=== PATIENT | female | born 1980 | race Caucasian/White ===

== ENCOUNTER 2024-01-04 08:14 | Emergency (ER) | payer SELFPAY ==
[2024-01-04 08:22] VITALS: BP 157/95
--- NOTE | 2024-01-04 08:42 | ED.GENMED ---
History of Present Illness
General
Chief Complaint: Musculo-Skeletal Complaint
Time Seen by Provider: 01/04/24 08:41
History of Present Illness
History of Present Illness:
HPI: Patient presents with burning sensation into the right lower extremity ongoing for the last few days. Today the pain worsened, the pain is primarily in the right side of the back that radiates into the proximal right thigh/groin. She reports
no dysfunction to the lower extremities. The pain was rather severe earlier. Certain movements make the symptoms worse. She had received chiropractic manipulation in the past.
EXAM:
GENERAL: Well appearing in no distress
HEENT: Moist oral mucosa
ABDOMEN: Soft with no peritoneal signs, no tenderness, there is no right lower quadrant tenderness
NEUROLOGIC: Excellent strength all extremities, no coordination deficits, she has excellent strength in an L5 and S1 distribution
BACK: There is no significant tenderness to palpation to the midline or paraspinal musculature in the lumbar region
PSYCHIATRIC: Appropriate mental status, normal insight and judgement
EXTREMITIES: Nontender, no edema, moves all extremities equally
SKIN: No rash, no lesions
TIME OF INITIAL ENCOUNTER: 9 AM
NUMBER AND COMPLEXITY OF PROBLEMS ADDRESSED AT THE ENCOUNTER
� Chronic conditions affecting care: Denies any significant past medical history
� Acute Exacerbation and/or Progression of Chronic Illness: This is an acute problem
� Differential Diagnosis includes: Sciatica, doubt ureteral stone based on location of pain, doubt appendicitis given the lack of abdominal tenderness, no rash to suggest shingles
AMOUNT AND/OR COMPLEXITY OF DATA TO BE REVIEWED AND ANALYZED
� I performed an independent evaluation of and my interpretation is:
EKG:
CT:
X-rays:
Laboratory Studies:
Other:
� Review of other/old records: No old records available for review
� Clinical information was obtained by an independent historian:
� Prescriptions/Medications Considered but not given: Considered narcotic prefer to hold off on narcotic at this time and try other meds first
� Further testing considered but not performed: Labs not indicated at this time
RISK OF COMPLICATIONS AND/OR MORBIDITY OR MORTALITY OF PATIENT MANAGEMENT
� Social determinants of health affecting care: Lives at home
� Discussion with other providers:
� Escalation of care including admission/observation vs risk of discharge considered: Suspect sciatica. Gave dose of Toradol and will start steroids. Given the associated burning sensation will give short course of gabapentin.
Phy Exam
Physical Exam
Physical Exam:
See HPI
Course
Orders/Labs/Results
Orders:
Orders
01/04/24 09:08
Ketorolac [Toradol] 30 mg IM NOW STA
Prednisone [Deltasone] 50 mg PO NOW STA
Vital Signs
Initial and Last Documented VS:
Initial Vital Signs
Temp Pulse Resp BP Pulse Ox
98.4 F 83 18 157/95 98
01/04/24 08:22 01/04/24 08:22 01/04/24 08:22 01/04/24 08:22 01/04/24 08:22
Last Documented Vital Signs
Temp Pulse Resp BP Pulse Ox
98.4 F 83 18 157/95 98
01/04/24 08:22 01/04/24 08:22 01/04/24 08:22 01/04/24 08:22 01/04/24 08:22
*Critical Care Note
Total Time (30-74mins, 75-104mins- exclusive of procedures): Not Applicable
ED Attending Note
-
Portions of this chart may have been created with voice recognition software.� Occasional wrong word or��sound alike� substitutions may have occurred due to the inherent limitations of voice recognition software.
Discharge Plan
Departure
Patient Disposition: Home (Routine Discharge)
Date of Disposition: 01/04/24
Time of Disposition: 09:09
Patient with high blood pressure during this ER visit?: Yes
Discharge Problem:
Sciatica
Instructions: Sciatica ED, BLOOD PRESSURE
Prescriptions:
New
prednisone 50 mg tablet
50 mg PO DAILY Qty: 4 0RF
gabapentin 300 mg capsule
300 mg PO Q8H PRN (Reason: pain) Qty: 21 0RF
Referrals:
NONE,* [Family Provider] -
Activity Restrictions/Additional Instructions:
Next dose of steroids tomorrow. I also sent a prescription for gabapentin to help with what sounds like nerve type of pain (burning sensation). Follow-up your primary care doctor. Return here if worse.
Interventions
Interventions:
*Risk Screen - Suicide Last Done: 01/04/24 08:22
*General Assessment Last Done: 01/04/24 08:22
*Neglect/Abuse Screening Last Done: 01/04/24 08:22
*ED COVID-19 Vaccine History Last Done: 01/04/24 08:22
ED-Musculoskeletal Assessment Last Done: 01/04/24 09:12
Discharge Date and Time
Print Language: GREENLANDIC
[2024-01-04] MEDS: DELTASONE 50 MG PO (09:21)
[2024-01-04] MEDS: TORADOL 30 MG IM (09:21)
[2024-01-04 09:32] VITALS: BP 139/84
== END 2024-01-04 09:33 | disposition home or self-care (01) ==
LOC: EMR 08:14
PROVIDERS: EMERGENCY PHYSICIAN Emergency Medicine
DX: M54.41 Lumbago with sciatica, right side (principal); M79.651 Pain in right thigh
CPT/HCPCS: 99284; 96372